=== PATIENT | male | born 1985 | race Hispanic/Latino ===

== ENCOUNTER 2017-07-10 12:15 | Emergency (ER) | payer OTHER ==
[2017-07-10 12:56] LABS: BASO # 0.1 K/uL (0.0-0.2); EOS % 0.1 % (0.0-4.0); HEMOGLOBIN 14.5 g/dL (12.0-18.0); LYMPH # 1.6 K/uL (1.0-4.3); LYMPH % 19.1 % (20.0-40.0); MEAN CELL VOLUME 98.4 fL (80.0-94.0); MEAN CORPUSCULAR HEMOGLOBIN 34.3 pg (27.0-31.0); MEAN CORPUSCULAR HGB CONC 34.9 g/dL (33.0-37.0); MEAN PLATELET VOLUME 8.2 fL (7.2-11.7); MONO # 0.9 K/uL (0.0-0.8); MONO % 10.8 % (0.0-10.0); NEUT # 5.9 K/uL (1.8-7.0); RBC 4.22 Mil/uL (4.40-5.90); RED CELL DISTRIBUTION WIDTH 12.5 % (11.5-14.5); WHITE BLOOD COUNT 8.6 K/uL (4.8-10.8)
[2017-07-10] MEDS: Sodium Chloride 0.9% 1,000 ML IV ONE (13:12)
[2017-07-10 13:18] LABS: ALB/GLOB RATIO 1.1 (1.0-2.1); ALBUMIN 4.6 g/dL (3.5-5.0); ALT/SGPT 39 U/L (21-72); AST/SGOT 27 U/L (17-59); BLOOD UREA NITROGEN 13 mg/dL (9-20); CALCIUM 9.5 mg/dl (8.6-10.4); GFR AFRICAN-AMERICAN > 60; GFR NON-AFRICAN AMERICAN > 60
[2017-07-10 13:19] LABS: URINE BILIRUBIN NEGATIVE (NEGATIVE); URINE BLOOD NEGATIVE (NEGATIVE); URINE CLARITY Clear (Clear); URINE COLOR Straw (YELLOW); URINE GLUCOSE (UA) NORMAL (Normal); URINE LEUKOCYTE ESTERASE NEG Leu/uL (Negative); URINE PROTEIN NEGATIVE (NEGATIVE); URINE UROBILINOGEN NORMAL mg/dL (0.2-1.0)
--- NOTE | 2017-07-10 13:22 | C.PDOC ---
History Of Present Illness 31-year-old male, sent to the emergency department from [facility] urgent care for evaluation of right testicular pain x6 days. Patient states he developed swelling to the area yesterday, prompting his visit. Patient denies fever, dysuria, hematruria, flank pain, penile discharge. Patient has a Hx of HIV and is compliant with Atripla, and viral load is undetectable. He notes concern for possible STD. Time Seen by Provider: 07/10/17 12:17 Chief Complaint (Nursing): Male Genitourinary History Per: Patient History/Exam Limitations: no limitations Onset/Duration Of Symptoms: Days Current Symptoms Are (Timing): Still Present Severity: Moderate Past Medical History Reviewed: Historical Data, Nursing Documentation, Vital Signs Vital Signs: Last Vital Signs Temp 99 F 07/10/17 15:02 Pulse 74 07/10/17 15:02 Resp 20 07/10/17 15:02 BP 124/87 07/10/17 15:02 Pulse Ox 99 07/10/17 17:12 - Medical History PMH: HIV Family History: States: No Known Family Hx - Social History Hx Alcohol Use: Yes Hx Substance Use: No - Immunization History Hx Tetanus Toxoid Vaccination: No Hx Influenza Vaccination: No Hx Pneumococcal Vaccination: No Review Of Systems Except As Marked, All Systems Reviewed And Found Negative. Constitutional: Negative for: Fever, Chills Respiratory: Negative for: Shortness of Breath Gastrointestinal: Negative for: Nausea, Vomiting, Abdominal Pain Genitourinary: Positive for: Scrotal Pain (swelling). Negative for: Dysuria, Incontinence, Hematuria, Penile Discharge, Rash, Penile Pain Musculoskeletal: Negative for: Back Pain Neurological: Negative for: Weakness, Numbness Physical Exam - Physical Exam Appears: Well, Non-toxic, No Acute Distress Skin: Normal Color, Warm, Dry, No Rash Head: Normacephalic Eye(s): bilateral: PERRL Nose: Normal Oral Mucosa: Moist Neck: Normal ROM Cardiovascular: Rhythm Regular, No Murmur Respiratory: Normal Breath Sounds, No Accessory Muscle Use Male Genital: Testicular Tenderness (mild), Testicular Swelling (Right), Other ( No lesions. No fluctuance or induration) Extremity: Normal ROM Neurological/Psych: Oriented x3, Normal Speech ED Course And Treatment - Laboratory Results Result Diagrams: 07/10/17 12:53 03/07/18 12:53 O2 Sat by Pulse Oximetry: 99 (RA) Pulse Ox Interpretation: Normal - CT Scan/US US TESTICULAR Other Rad Studies (CT/US): Read By Radiologist, Radiology Report Reviewed CT/US Interpretation: Accession No. : [id number]. Patient Name / ID : HAYLEY TRAVIS / [id number]. Exam Date : 07/10/2017 13:18:06 ( Approved ). Study Comment : Sex / Age : M / 31Y. Creator : Todd Levi MD. Dictator : Todd Levi MD. Process Consultant : Oven Loader : Todd Levi MD. Approver2 : Report Date : 07/10/2017 13:46:16. My Comment : . HISTORY: RIGHT TESTICULAR PAIN, R/O TORSION. TECHNIQUE: Realtime sonography through the scrotum with color and doppler flow. COMPARISON: None Available. FINDINGS: RIGHT TESTICLE: Measures 3.6 x 2.2 x 3.8 cm. Normal echotexture and flow. RIGHT EPIDIDYMIS: Epididymal head measures 2.1 x 1.3 x 2.7 cm. Increased flow. LEFT TESTICLE: Measures 4.0 x 1.8 x 3.2 cm. Normal echotexture and flow. LEFT EPIDIDYMIS: Epididymal head measures 0.9 x 0.4 x 1.3 cm. Grossly unremarkable appearance with normal flow. HYDROCELE: None. VARICOCELE: None. OTHER FINDINGS: None. IMPRESSION: Acute right epididymitis. Progress Note: Bloodwork, UA ordered and reviewed. Patient treated with IM Rocephin, Azithromycin and IVFs. Disposition Counseled Patient/Family Regarding: Studies Performed, Diagnosis, Need For Followup, Rx Given - Disposition Referrals: Sadiq Pike MD [Staff Provider] - Disposition: HOME/ ROUTINE Disposition Time: 14:30 Condition: STABLE Additional Instructions: FOLLOW UP WITH UROLOGY WITHIN 1 WEEK USE MEDICATIONS DIRECTED, TAKE ANTIBIOTICS UNTIL FINISHED RETURN TO ER IF SYMPTOMS WORSEN Prescriptions: Doxycycline Monohydrate 100 mg PO BID #20 tablet Instructions: Epididymitis (DC) Forms: [employer] (Czech) Print Language: SPANISH - Clinical Impression Clinical Impression: Right epididymitis - Scribe Statement The provider has reviewed the documentation as recorded by the Scribe (Lindsay Malone) All medical record entries made by the Scribe were at my direction and personally dictated by me. I have reviewed the chart and agree that the record accurately reflects my personal performance of the history, physical exam, medical decision making, and the department course for this patient. I have also personally directed, reviewed, and agree with the discharge instructions and disposition.
--- NOTE | 2017-07-10 13:47 | US ---
HISTORY: RIGHT TESTICULAR PAIN, R/O TORSION TECHNIQUE: Realtime sonography through the scrotum with color and doppler flow. COMPARISON: None Available. FINDINGS: RIGHT TESTICLE: Measures 3.6 x 2.2 x 3.8 cm. Normal echotexture and flow. RIGHT EPIDIDYMIS: Epididymal head measures 2.1 x 1.3 x 2.7 cm. Increased flow. LEFT TESTICLE: Measures 4.0 x 1.8 x 3.2 cm. Normal echotexture and flow. LEFT EPIDIDYMIS: Epididymal head measures 0.9 x 0.4 x 1.3 cm. Grossly unremarkable appearance with normal flow. HYDROCELE: None. VARICOCELE: None. OTHER FINDINGS: None. IMPRESSION: Acute right epididymitis.
[2017-07-10] MEDS: cefTRIAXone (Rocephin) 250 mg Inj IM STA (15:02)
[2017-07-10 15:03] VITALS: BP 124/87; PULSE 74; RESP 20; TEMP 99
[2017-07-10 15:35] VITALS: O2SAT 99
== END 2017-07-10 15:04 | disposition home or self-care (01) ==
LOC: C.ER 12:15
DX: N45.1 Epididymitis (principal); Z21 Asymptomatic human immunodeficiency virus [HIV] infection status
CPT/HCPCS: 76870; 80053; 81001; 85025; 87086; 87491; 87591; 96360; 96372; 99285; J0696; J7040